=== PATIENT | female | born 1965 | race Caucasian/White ===

== ENCOUNTER → 2018-03-11 | Outpatient (CLI) | payer BC, OTHER ==
[~2018-03-11] MED LIST: ATEN-65 PO; DULO60CA51 PO; HYDR15CR4 TP; OMEP-218 PO; OXY10 PO; SUMA4PEN3 SQ; TRAZ-133 PO
--- NOTE | 2018-03-11 14:15 | RADIOLOGY IMAGING REPORT ---
FACILITY: [facility] PATIENT NAME: EVELYNE BAH : [id number] MR: [id number] V: [id number] EXAM DATE: ORDERING PHYSICIAN: JEISON TOMLINSON TECHNOLOGIST: Aranza Samson PROCEDURE:BILATERAL DIGITAL SCREENING MAMMOGRAM WITH CAD ASSISTED INTERPRETATION & 3D TOMOSYNTHESIS COMPARISON:Prior mammograms 09/06/16, 04/12/15, 01/05/14, 01/08/13, 10/04/11. INDICATIONS:SCREENING FINDINGS: Small to moderate amount of fibroglandular tissue is seen throughout the breasts. The parenchymal pattern has remained stable allowing for difference in mammographic technique & patient positioning. There are scattered small round calcifications seen bilaterally however they have remained stable. There is no evidence of malignant appearing mass, malignant appearing calcifications or other secondary sign of malignancy in either breast. DIAGNOSTIC CATEGORY 2--BENIGN FINDING. RECOMMENDATIONS: ROUTINE MAMMOGRAM AND CLINICAL EVALUATION. IMPRESSION: BIRADS 2: Benign finding. No significant abnormality is seen. Dictated by: Francia Doss M.D. on 03/11/2018 at 11:32 Transcribed by: [email or web address] on 03/11/2018 at 14:10 Approved by: Francia Doss M.D. on 03/11/2018 at 14:14 [facility]
== END ==
LOC: MAMO 01:34
PROVIDERS: ATTEND Nurse Practitioner Family
DX: Z12.31 Encounter for screening mammogram for malignant neoplasm of breast (principal); R92.1 Mammographic calcification found on diagnostic imaging of breast
CPT/HCPCS: 77063; 77067